=== PATIENT | female | born 1990 | race Caucasian/White ===

== ENCOUNTER 2019-12-18 11:45 | Observation (INO) | payer MEDICAID, SELFPAY ==
[2019-12-18 11:46] VITALS: BP 131/97; PULSE 95; RESP 16; TEMP 36.2; O2SAT 97; BMI 21.6
--- NOTE | 2019-12-18 12:06 | ED.VIS.GEN ---
History of Present Illness Chief Complaint: Substance Abuse Informant: Patient Narrative: Patient is a 29-year-old female with history of hepatitis C presenting with request for detox. Patient states she regularly uses heroin and methamphetamines and last use last night at 10 PM. Her and her boyfriend are both trying to get clean. Patient states she uses daily. He states she injects. She started to feel some withdrawal symptoms including antsiness and nausea. She states she intermittently uses Xanax and Klonopin but that only couple times a month. She denies any other complaints at this time. Past Medical History - Allergies and Home Meds Allergies/Adverse Reactions: Allergies No Known Allergies Allergy (Verified 12/18/19 12:20) Past Medical History: - - Hepatitis C, IV drug abuse Lives: Spouse/ Significant Other Smoking Status: Current every day smoker Alcohol: None Drugs: Heroin, - - Methamphetamine - Family History Maternal Family History: Reports: Hypertension Paternal Family History: Reports: Unknown Review of Systems General: Reports: Malaise. Denies: Chills, Fever, Sweats Eyes: Denies: Visual changes - bilaterally, Diplopia ENT: Denies: Rhinorrhea, Sore throat Cardiovascular: Denies: Chest pain, Palpitations Respiratory: Denies: Dyspnea, Cough, Dyspnea on exertion Gastrointestinal: Reports: Nausea. Denies: Abdominal pain, Vomiting, Diarrhea, Melena, Hematochezia Genitourinary: Denies: Dysuria, Hematuria, Frequency Musculoskeletal: Denies: Back pain, Extremity Pain Skin: Denies: Rash, Wounds Neurological: Denies: Headache, Weakness, Numbness Physical Exam Vital Signs/Narrative: Vital Signs Temp Pulse Resp BP Pulse Ox 12/18/19 11:46 97.1 F L 95 16 131/97 H 97 Inital Vital Signs reviewed: Yes General: Well nourished, Well developed, No Acute Distress Head: Normocephalic, Atraumatic Eyes: Perrl, EOMI ENT: Moist mucous membranes, No rhinorrhea Neck: Supple, Nontender Cardiovascular: Regular rate, Regular rhythm, No murmurs Respiratory: No distress, CTA bilaterally, Chest nontender Abdomen: Soft, Nontender, Nondistended, Normal bowel sounds Back: Nontender, Normal Inspection Extremities: Nontender, No edema Skin: Normal color, No rash, - - Multiple healing scabs on upper extremities consistent with skin picking, no significant cellulitic changes or abscess noted Neurological: Alert, Oriented x3, Cranial nerves II-XII grossly intact, Normal Strength, Normal Sensation Psychological: Normal affect, Normal Mood, Agitated Diagnostic/Tx/Re-eval - Medical Decision Making Laboratory Data 12/18/19 12/18/19 12/18/19 11:15 11:15 11:15 WBC RBC Hgb Hct MCV MCH MCHC RDW Std Deviation RDW Coeff of Tod Plt Count MPV Immature Gran % (Auto) Neut % (Auto) Lymph % (Auto) [place] % (Auto) Eos % (Auto) Baso % (Auto) Absolute Neuts (auto) Absolute Lymphs (auto) Nucleated RBC % Sodium 137 Potassium 3.6 Chloride 104 Carbon Dioxide 29.0 Anion Gap 4 L BUN 11 Creatinine 0.79 Estim Creat Clear Calc 92.85 Est GFR (MDRD) Af Amer 109 Est GFR (MDRD) Non-Af 90 BUN/Creatinine Ratio 13.9 Glucose 64 L Calcium 8.4 L Total Bilirubin 0.70 AST 22 ALT 28 Alkaline Phosphatase 99 Total Protein 7.9 Albumin 3.4 Globulin 4.5 H Albumin/Globulin Ratio 0.8 L Urine Color Urine Clarity Urine pH Ur Specific [place] Urine Protein Urine Glucose (UA) Urine Ketones Urine Occult Blood Urine Nitrite Urine Bilirubin Urine Urobilinogen Ur Leukocyte Esterase Urine RBC Urine WBC Ur Squamous Epith Cells Calcium Oxalate Crystal Urine Bacteria Urine Mucus Urine Test Urine Opiates Screen NEGATIVE Urine Methadone Screen NEGATIVE Ur Barbiturates Screen NEGATIVE Ur Phencyclidine Scrn NEGATIVE Ur Amphetamines Screen POSITIVE H U Methamphetamin-MDMA POSITIVE H U Benzodiazepines Scrn NEGATIVE Urine Cocaine Screen NEGATIVE U Cannabinoids Screen NEGATIVE Ur Drug Screen Comment Ethyl Alcohol 4.0 12/18/19 12/18/19 11:15 11:15 WBC 8.3 RBC 4.71 Hgb 14.0 Hct 42.2 MCV 89.6 MCH 29.7 MCHC 33.2 RDW Std Deviation 43.8 RDW Coeff of Tod 13.4 Plt Count 313 MPV 8.6 Immature Gran % (Auto) 0.200 Neut % (Auto) 68.9 Lymph % (Auto) 19.8 [place] % (Auto) 6.9 Eos % (Auto) 3.5 Baso % (Auto) 0.7 Absolute Neuts (auto) 5.7 Absolute Lymphs (auto) 1.64 Nucleated RBC % 0 Sodium Potassium Chloride Carbon Dioxide Anion Gap BUN Creatinine Estim Creat Clear Calc Est GFR (MDRD) Af Amer Est GFR (MDRD) Non-Af BUN/Creatinine Ratio Glucose Calcium Total Bilirubin AST ALT Alkaline Phosphatase Total Protein Albumin Globulin Albumin/Globulin Ratio Urine Color Yellow Urine Clarity Sl. Cloudy Urine pH 5.0 Ur Specific [place] 1.025 Urine Protein Negative Urine Glucose (UA) Normal Urine Ketones 5 H Urine Occult Blood 50 H Urine Nitrite Negative Urine Bilirubin Negative Urine Urobilinogen 1 H Ur Leukocyte Esterase 100 H Urine RBC 0-5 SEEN Urine WBC 10-25 SEEN Ur Squamous Epith Cells 0-5 SEEN Calcium Oxalate Crystal 1+ Urine Bacteria 2+ Urine Mucus 0 SEEN Urine Test Negative Urine Opiates Screen Urine Methadone Screen Ur Barbiturates Screen Ur Phencyclidine Scrn Ur Amphetamines Screen U Methamphetamin-MDMA U Benzodiazepines Scrn Urine Cocaine Screen U Cannabinoids Screen Ur Drug Screen Comment Ethyl Alcohol Patient is evaluated for request of heroin and methamphetamine detox. Patient appears mildly anxious and physical exam is otherwise benign. Patient has any urinary symptoms however urinalysis does show some white blood cells and 2+ bacteria. Urine culture sent. Patient is admitted to inpatient detox. She is agreeable this plan. She is hemodynamically stable at time of disposition. ED Disposition - Plan for ED Patient: Disposition: Acute Care Hospital [facility] Diagnosis: Heroin withdrawal, IV drug abuse
[2019-12-18] MEDS: LORazepam 2 MG/ML Syringe 0.5 MG IV (12:20)
[2019-12-18] MEDS: Ondansetron 4 MG/2 ML Vial IV (12:20)
[2019-12-18 12:25] LABS: Mucous, Urine 0 SEEN /hpf (<or=2+)
[2019-12-18 12:29] LABS: Color, Urine Yellow (Yellow); Glucose, Dipstick Normal (Normal); Ketone-Dipstick 5 mg/dl (Negative); Leukocyte Esterase-Dipstick 100 /ul (Negative); Nitrite-Dipstick Negative (Negative); Occult Blood-Urine 50 /ul (Negative); Protein-Dipstick Negative (Negative); Specific Gravity, Urine 1.025 (1.002-1.030); Urine Bilirubin Dipstick Negative (Negative); Urine Clarity Sl. Cloudy (Clear); Urine Urobilinogen 1 mg/dl (Normal)
[2019-12-18 12:35] LABS: Absolute Lymphocyte Count 1.64 X10^3/uL (0.83-4.51); Absolute Neutrophil Count 5.7 X10^3/uL (2.0-7.7); Bacteria 2+ /hpf (None Seen); Basophil# 0.06 X10^3/uL; Basophil% 0.7 % (0-1); Eosinophil# 0.29 X10^3/uL; Eosinophils% 3.5 % (0-5); Hematocrit 42.2 % (37-47); Lymphocyte # 1.64 X10^3/ul (4.0); Lymphocyte % 19.8 % (19-41); Mean Corp Hgb Conc 33.2 g/dL (32-36); Mean Corpuscular Hgb 29.7 pg (27.0-32.0); Mean Corpuscular Volume 89.6 fL (81-99); Mean Platelet Vol. 8.6 fl (6.2-12.0); Monocyte# 0.57 X10^3/uL; Monocyte% 6.9 % (0-10); NRBC Flagged by Analyzer 0 % (0-5); Neutrophil % 68.9 % (47-70); Platelet Count 313 K/mm3 (150-450); RBC Distribution Width CV 13.4 % (11.6-14.6); RBC Distribution Width SD 43.8 fl (35.1-43.9); Red Blood Cells-Urine 0-5 SEEN /hpf (0-5); Red Blood Count 4.71 M/mm3 (4.2-5.4); Squamous Epithelial Cells - UA 0-5 SEEN /hpf (5-10); White Blood Cells 10-25 SEEN /hpf (0-5); White Blood Count 8.3 K/mm3 (4.4-11.0)
[2019-12-18 12:36] LABS: Calcium Oxalate Crystals Ur 1+ /hpf (<or=2+)
[2019-12-18 12:37] LABS: Internal QC Validated? YES +Cl - CLEAR BKGD; Pregnancy, Urine Negative Negative
[2019-12-18 12:51] LABS: ALB/GLOB Ratio 0.8 RATIO (0.9-2.4); AST(SGOT) 22 U/L (15-37); Alanine Aminotransfer ALT/SGPT 28 U/L (13-56); Albumin, Serum 3.4 g/dL (3.2-5.0); Alkaline Phosphatase 99 U/L (45-117); Anion Gap 4 (5-15); BUN 11 mg/dL (7-18); BUN/Creat Ratio 13.9 RATIO (10-20); Calcium,Total 8.4 mg/dL (8.5-10.1); Chloride 104 mmol/L (98-107); Creatinine, Serum 0.79 mg/dL (0.55-1.02); EST Glomerular Filtration Rate 90 mL/min (>60); Est Glom Filt Rate - Afr Amer 109 mL/min (>60); Estimated Creatinine Clearance 92.85 ml/min; Globulin 4.5 g/dL (2.2-4.2); Glucose 64 mg/dL (74-106); Potassium 3.6 mmol/L (3.5-5.1); Protein, Total 7.9 g/dL (6.4-8.2); Sodium Level 137 mmol/L (136-145)
[2019-12-18 13:06] LABS: Amphetamine Urine VISTA POSITIVE (<1000 ng/mL); Barbiturate Urine VISTA NEGATIVE (< 200 ng/mL); Benzodiazepine Urine VISTA NEGATIVE (< 200 ng/mL); Cocaine Urine VISTA NEGATIVE (< 300 ng/mL); Ecstacy Urine VISTA POSITIVE (< 500 ng/mL); Methadone Urine VISTA NEGATIVE (< 300 ng/mL); PCP Urine VISTA NEGATIVE (< 25 ng/mL); THC Urine VISTA NEGATIVE (< 50 ng/mL); Vista UDS pH Range 5
--- NOTE | 2019-12-18 13:20 | CM.ED ---
SOCIAL WORK Informant: Dr. Ackerman Reason for Consult: Substance Abuse Met with patient in room. Introduced role and reason for referral. Patient reports is from [facility] and had been unable to find detox. Patient reports plan to attend IOP at [facility]. Patient would also like information on residential treatment and reports is currently homeless. Patient admits to history of depression and anxiety and states depression worsened in March when her father . Patient reports after his began using almost everyday. Patient reports uses heroin and meth and states last use was last evening. Patient states [facility] worker, Swapna Patel is aware she was coming in for treatment. Patient states her mother has temporary custody of her 3 children. Education provided on [facility] program and updated patient will be assessed by metal casting trades worker from [facility]. Call to [facility], spoke with Dorinda to update on patient's admission to [facility]. Dorinda to be in to complete assessment. Ayan Gonzalez, CHEMICAL PROCESSING SUPERVISOR, HELPER TEACHER
[2019-12-18 13:21] VITALS: BP 128/74; PULSE 87; RESP 16; TEMP 36.6; O2SAT 98
--- NOTE | 2019-12-18 13:29 | PCM.HP.STD ---
Problem List (1) Heroin withdrawal Status: Acute History of Present Illness Date of Admission: 12/18/19 Chief Complaint: requesting heroin withdrawal treatment The patient is a 29 year old F who injects heroin whose last use was last evening is requesting treatment for withdrawal. Patient since then has been having restless legs, abdominal cramps and a feeling very anxious. Patient presented to the emergency room from [facility] as she was not able to be admitted at a facility for acute withdrawal symptoms down there. Plan is for her to enroll in a outpatient program this coming Monday down in [place]. [] Past Medical History Medical History: Medical History (Last Updated 12/18/19 @ 13:[address] Adam Coffey, DO) Anxiety F41.9 Hepatitis C B19.20 Allergies No Known Allergies Allergy (Verified 12/18/19 12:20) Home Medications: Ambulatory Orders Medication Instructions Recorded Mirtazapine [Remeron] 15 mg PO QHS 12/18/19 Venlafaxine HCl [Effexor Xr] 75 mg PO DAILY 12/18/19 Lives: Spouse/ Significant Other Smoking Status: Heavy Smoker (>10/day) Tobacco Use: Cigarettes Alcohol: None Drugs: Heroin, - - Methamphetamine - *Family History Maternal History Items: Hypertension Paternal History Items: Unknown Review of Systems Constitutional: Reports: Anorexia, Chills Eyes: Denies: Blurred vision, Double vision HEENT: Denies: Head Aches, Sinus Congestion, Sinus Drainage Cardiovascular: Denies: Chest Pain, Palpitations Respiratory: Denies: Cough, Shortness of breath at rest, Sputum production Gastrointestinal: Reports: Abdominal Pain, Nausea. Denies: Vomiting Skin: Reports: - - multiple self-induced wounds on arms, face and legs. resolving erythema over right arm from a failed infection. Psychiatric: Reports: Anxiety Comment: All review of systems were negative except as mentioned above in the history of present illness and the other review of systems. VTE Information - Inpt Only VTE Present on Admission: No VTE Mechan Device Prophylaxis: None VTE Pharm Prophylaxis ordered?: No Reason prophylaxis not ordered:: Treatment Not Indicated Patient Problems: Active and Suspected Problems Heroin withdrawal (Acute) - Physical Exam Vitals/I&O's: Vital Signs Temp Pulse Resp BP Pulse Ox 36.6 C 87 16 128/74 H 98 12/18/19 13:21 12/18/19 13:21 12/18/19 13:21 12/18/19 13:21 12/18/19 13:21 Oxygen Delivery Method Room Air Weight: 58.967 kg Body Mass Index (BMI) 21.6 General: Alert, Cooperative HEENT: Atraumatic, Normocephalic Neck: No Nodes, Thyroid Normal Size and Texture Lungs: Clear to auscultation, Normal air movement, No rhonchi, No wheeze, No rales Cardiovascular: Regular rate, Regular Rhythm, Normal S1, Normal S2, No murmurs Abdomen: Bowel Sounds Present, Soft, Non Tender, Non-Distended Extremities: No edema, No Calf Tenderness Skin: - - multiple scabbed lesions over face, arms and legs. erythematous lesion over right forarm. Musculoskeletal: No Muscle Wasting Psych/Mental Status: Agitated, Anxious Laboratory Results 12/18/19 11:15: Sodium 137, Potassium 3.6, Chloride 104, Carbon Dioxide 29.0, Anion Gap 4 L, BUN 11, Creatinine 0.79, Estim Creat Clear Calc 92.85, Est GFR (MDRD) Af Amer 109, Est GFR (MDRD) Non-Af 90, BUN/Creatinine Ratio 13.9, Glucose 64 L, Calcium 8.4 L, Total Bilirubin 0.70, AST 22, ALT 28, Alkaline Phosphatase 99, Total Protein 7.9, Albumin 3.4, Globulin 4.5 H, Albumin/Globulin Ratio 0.8 L 12/18/19 11:15: Ethyl Alcohol 4.0 12/18/19 11:15: Urine Opiates Screen NEGATIVE, Urine Methadone Screen NEGATIVE, Ur Barbiturates Screen NEGATIVE, Ur Phencyclidine Scrn NEGATIVE, Ur Amphetamines Screen POSITIVE H, U Methamphetamin-MDMA POSITIVE H, U Benzodiazepines Scrn NEGATIVE, Urine Cocaine Screen NEGATIVE, U Cannabinoids Screen NEGATIVE, Ur Drug Screen Comment 12/18/19 11:15: WBC 8.3, RBC 4.71, Hgb 14.0, Hct 42.2, MCV 89.6, MCH 29.7, MCHC 33.2, RDW Std Deviation 43.8, RDW Coeff of Tod 13.4, Plt Count 313, MPV 8.6, Immature Gran % (Auto) 0.200, Neut % (Auto) 68.9, Lymph % (Auto) 19.8, [place] % (Auto) 6.9, Eos % (Auto) 3.5, Baso % (Auto) 0.7, Absolute Neuts (auto) 5.7, Absolute Lymphs (auto) 1.64, Nucleated RBC % 0 12/18/19 11:15: Urine Color Yellow, Urine Clarity Sl. Cloudy, Urine pH 5.0, Ur Specific [place] 1.025, Urine Protein Negative, Urine Glucose (UA) Normal, Urine Ketones 5 H, Urine Occult Blood 50 H, Urine Nitrite Negative, Urine Bilirubin Negative, Urine Urobilinogen 1 H, Ur Leukocyte Esterase 100 H, Urine RBC 0-5 SEEN, Urine WBC 10-25 SEEN, Ur Squamous Epith Cells 0-5 SEEN, Calcium Oxalate Crystal 1+, Urine Bacteria 2+, Urine Mucus 0 SEEN, Urine Test Negative Assessment/Plan All Active Problems Heroin withdrawal (Acute) 1. acute heroin withdrawal: Patient will be started on the buprenorphine taper. Explained to the patient that they will take place over 3 days and her last dose will be on the . Patient last will have other medications to help with other somatic complaints associated with her withdrawal. Patient is to enroll in a program this coming Monday down in [place], [place]. Told the patient I am not sure if she would be able to stay here until then but it may be in her best interest for her to stay until then so as to prevent the relapse. Patient is here with her fianc? who is also seeking treatment for heroin withdrawal. I did tell the patient that this is a voluntary program and that we do encourage her to stay through the duration but if she were to insist on leaving AGAINST MEDICAL ADVICE that we would do what we could to encourage her to stay but we would not prevent her from leaving if that is what she so desired. 2. Hepatitis C: Secondary to heroin. Recommend outpatient follow-up. 3. VTE prophylaxis low risk and not indicated. Inpatient E&M: 43042 Init Hosp L2
[2019-12-18 14:44] VITALS: BMI 22.3
[2019-12-18 14:52] VITALS: BP 108/64; PULSE 87; RESP 16; TEMP 36.9; O2SAT 97
[2019-12-18] MEDS: Dicyclomine 10 MG Capsule 20 MG PO ×2 (16:27→23:08)
[2019-12-18] MEDS: Methocarbamol 750 MG Tablet 1500 MG PO ×2 (16:27→23:08)
[2019-12-18] MEDS: hydrOXYzine PAM 25 MG Capsule 50 MG PO (16:27)
[2019-12-18] MEDS: Gabapentin 300 MG Capsule PO (16:28)
[2019-12-18] MEDS: Buprenorphine HCl 2 MG TAB.SUBL 4 MG SL ×2 (16:28→22:59)
[2019-12-18 22:51] VITALS: BP 112/78; PULSE 101; RESP 18; TEMP 36.8; O2SAT 95
[2019-12-18] MEDS: Ibuprofen 600 MG Tablet PO (23:08)
[2019-12-18] MEDS: Mirtazapine 15 MG Tablet PO (23:08)
[2019-12-19 03:05] VITALS: BP 117/84; PULSE 94; RESP 18; TEMP 36.9; O2SAT 95
[2019-12-19 05:56] VITALS: BP 116/80; PULSE 92; RESP 17; TEMP 36.8; O2SAT 96
[2019-12-19] MEDS: Buprenorphine HCl 2 MG TAB.SUBL 4 MG SL ×3 (07:46→20:06)
[2019-12-19] MEDS: Ibuprofen 600 MG Tablet PO ×2 (07:52→15:22)
[2019-12-19] MEDS: Gabapentin 300 MG Capsule PO ×3 (07:52→23:28)
[2019-12-19] MEDS: Ondansetron ODT 4 MG Tablet 8 MG PO ×2 (07:52→17:19)
[2019-12-19] MEDS: Venlafaxine XR 75 MG Capsule PO (07:53)
[2019-12-19 08:00] VITALS: BP 136/75; PULSE 89; RESP 16; TEMP 37; O2SAT 100
[2019-12-19] MEDS: cloNIDine HCl 0.1 MG Tablet PO ×2 (09:38→17:19)
[2019-12-19] MEDS: Methocarbamol 750 MG Tablet 1500 MG PO ×3 (11:25→23:28)
[2019-12-19] MEDS: hydrOXYzine PAM 25 MG Capsule 50 MG PO ×2 (11:25→21:34)
[2019-12-19 11:48] VITALS: BP 108/74; PULSE 92; RESP 16; TEMP 36.8; O2SAT 100
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
--- NOTE | 2019-12-19 14:50 | ADDICTION ---
This headline writer met with patient to assess ASAM criteria and to begin discharge planning. Patient was alert/oriented x4 and presented with agitated mood and congruent affect. She participated appropriately throughout this episode of care. She reports that her drug of choice is heroin but that she also uses meth daily. Patient appears appropriate for 4.0 Medically Managed Intensive Inpatient services due to length of use, frequency and amount of use as well has severe withdrawal symptoms. She reports the following sx: nausea, vomiting, agitation, restless leg, muscle aches, headache and general discomfort. This headline writer completed ASAM Assessment, AUDIT and MSE. Patient signed JEREMY for [employer] and [facility] and is scheduled for an appointment with her primary counselor on 02/23/2020 at 11am. She rejected residential recommendation. Patient was provided information related to addiction, withdrawal, triggers, sober supports and other beneficial information. She was provided information for AoD and MH providers in her preferred area. She has agreed to complete written discharge plan to be reviewed by this headline writer at next visit. This headline writer will fax MSE, ASAM assessment, AUDIT, JEREMY and discharge plan upon patient's completion of program. This headline writer will visit with patient on 12/20/2019 to continue discharge planning processes.
[2019-12-19] MEDS: Cephalexin 500 MG Capsule PO ×2 (15:22→21:27)
[2019-12-19 15:25] VITALS: BP 122/84; PULSE 89; RESP 16; TEMP 36.8; O2SAT 100
[2019-12-19 16:21] LABS: HIV - WCH Non-Reactive (Nonreactive)
[2019-12-19 20:50] VITALS: BP 105/68; PULSE 83; RESP 14; TEMP 36.7; O2SAT 100
[2019-12-19] MEDS: Mirtazapine 15 MG Tablet PO (21:27)
[2019-12-20 03:00] VITALS: BP 101/70; PULSE 74; RESP 16; TEMP 36.8; O2SAT 97
[2019-12-20] MEDS: Buprenorphine HCl 2 MG TAB.SUBL 4 MG SL ×3 (03:33→20:46)
[2019-12-20] MEDS: Methocarbamol 750 MG Tablet 1500 MG PO ×3 (05:52→18:11)
[2019-12-20] MEDS: hydrOXYzine PAM 25 MG Capsule 50 MG PO ×2 (05:53→14:44)
[2019-12-20] MEDS: Ibuprofen 600 MG Tablet PO ×2 (07:25→21:02)
[2019-12-20 09:10] VITALS: BP 117/77; PULSE 78; RESP 18; TEMP 37.1; O2SAT 97
[2019-12-20] MEDS: Venlafaxine XR 75 MG Capsule PO (09:12)
[2019-12-20] MEDS: Cephalexin 500 MG Capsule PO ×2 (09:12→21:02)
[2019-12-20] MEDS: Gabapentin 300 MG Capsule PO ×2 (09:12→18:11)
[2019-12-20] MEDS: Acetaminophen 500 MG Tablet PO ×2 (09:13→13:14)
--- NOTE | 2019-12-20 12:55 | ADDICTION ---
This advertising writer met with patient, in her room, to discuss discharge planning. Patient was up, alert and oriented and presented with euthymic affect. She reported that she feels much better than yesterday and shared that peer support ([facility]) came and visited. She also reported that she scheduled an appointment to see Dr. Quiroz for MAT on December 23 at 9am. She reported that she is feeling much more motivated to engage in ongoing treatment and plans to initiate attendance in IOP at [facility]. She reported that she plans to work with the housing department to obtain housing as well. JHONATAN, ROCHELLE, MARTINE and JEREMY faxed to [facility] on 12/20/2019.
[2019-12-20] MEDS: Ondansetron ODT 4 MG Tablet 8 MG PO (13:10)
--- NOTE | 2019-12-20 13:22 | PCM.PN.HOSP ---
<Saeed Lopez - Last Filed: 12/20/19 13:22> Patient Problems: Active and Suspected Problems Heroin withdrawal (Acute) IV drug abuse (Acute) Reason for Visit: Heroin withdrawal Subjective: Patient resting comfortably in bed, sleepy but easily awoken. Patient states that overall her symptoms are markedly improved since yesterday. She does continue to have some back pain, generalized muscle aches, restless legs. Anxiety is improved. No nausea, vomiting, diarrhea. Patient is tolerating p.o. intake. Patient has no cellulitic changes around her injection [place] on her hand and distal arms. Patient is reluctant to stay 2 more days as she was admitted as the same time as her fianc? who is likely to be discharged tomorrow. She stated that their plan was to go through this protocol together and she wants to be discharged the same time he has. Vitals/I&O's: Vital Signs Temp Pulse Resp BP Pulse Ox 98.7 F 78 18 117/77 97 12/20/19 09:10 12/20/19 09:10 12/20/19 09:10 12/20/19 09:10 12/20/19 09:10 Oxygen Delivery Method Room Air Weight: 133 lb 15.987 oz Body Mass Index (BMI) 22.3 Intake and Output for Last 24 Hours 12/18/19 12/19/19 12/20/19 23:59 23:59 23:59 Intake Total 1210 / 1510 1200 / 1200 Balance 1210 / 1510 1200 / 1200 General: Alert, Oriented x3, Cooperative HEENT: Atraumatic, PERRLA, EOMI, Normocephalic Neck: Supple, No JVD, Negative Carotid Bruits Lungs: Clear to auscultation, Normal air movement Cardiovascular: Regular rate, No murmurs Abdomen: Bowel Sounds Present, Soft, Non Tender Extremities: No edema, Capillary Refill Less than 3 Seconds Skin: No rashes, No breakdown Musculoskeletal: No Tenderness to Palpation of Joints or Extremities Neurological: Cranial nerves II-XII grossly intact Psych/Mental Status: Normal Affect, Appropriate, Alert and oriented to time, place, person, mood and affect Microbiology Past 72 Hours 12/18/19 11:10 Urine, Clean Catch Urine Culture - Final Presumptive E. coli Laboratory Results 12/18/19 11:15: HIV 1&2 Antibody Non-Reactive Current Medications Acetaminophen (Tylenol) 500 mg PO Q4H PRN PRN PRN Reason: Temp > 100.4 F Last Admin: 12/20/19 13:14 Dose: 500 mg Documented by: Al Hydroxide/Mg Hydroxide (Mylanta Ii) 30 ml PO Q6H PRN PRN PRN Reason: dyspesia Buprenorphine HCl (Buprenorphine Hcl) 4 mg SL Q8H JYOTHI; Taper Stop: 12/22/19 11:59 Last Admin: 12/20/19 12:01 Dose: 4 mg Documented by: Cephalexin (Keflex) 500 mg PO Q12 JYOTHI Last Admin: 12/20/19 09:12 Dose: 500 mg Documented by: Clonidine (Catapres) 0.1 mg PO Q8H PRN PRN PRN Reason: RESTLESSNESS Last Admin: 12/19/19 17:19 Dose: 0.1 mg Documented by: Dicyclomine HCl (Bentyl) 20 mg PO Q6H PRN PRN PRN Reason: Abdominal Discomfort Last Admin: 12/18/19 23:08 Dose: 20 mg Documented by: Gabapentin (Neurontin) 300 mg PO Q8H PRN PRN PRN Reason: moderate to severe anxiety Last Admin: 12/20/19 09:12 Dose: 300 mg Documented by: Hydroxyzine Pamoate (Vistaril Pamoate Capsule) 50 mg PO Q6H PRN PRN PRN Reason: mild anxiety Last Admin: 12/20/19 05:53 Dose: 50 mg Documented by: Ibuprofen (Motrin) 600 mg PO Q8H PRN PRN PRN Reason: Pain Score 1-10/10 Last Admin: 12/20/19 07:25 Dose: 600 mg Documented by: Loperamide HCl (Imodium) 2 mg PO Q4H PRN PRN PRN Reason: LOOSE STOOLS Methocarbamol (Methocarbamol) 1,500 mg PO Q6H PRN PRN PRN Reason: MUSCLE SPASM Last Admin: 12/20/19 12:01 Dose: 1,500 mg Documented by: Mirtazapine (Remeron) 15 mg PO QHS [facility] Last Admin: 12/19/19 21:27 Dose: 15 mg Documented by: Nicotine (Nicoderm Cq (Pbkc)) 21 mg TRANSDERM. DAILY [facility] Last Admin: 12/20/19 09:12 Dose: 21 mg Documented by: Ondansetron HCl (Zofran Odt) 8 mg PO Q8H PRN PRN PRN Reason: NAUSEA Last Admin: 12/20/19 13:10 Dose: 8 mg Documented by: Trazodone HCl (Desyrel) 100 mg PO QHS PRN PRN PRN Reason: INSOMNIA Venlafaxine HCl (Effexor Xr) 75 mg PO DAILY JYOTHI Last Admin: 12/20/19 09:12 Dose: 75 mg Documented by: Medical Necessity - Tobacco Use Smoking Status: Heavy Smoker (>10/day) Tobacco Use: Cigarettes Assessment/Plan All Active Problems Heroin withdrawal (Acute) IV drug abuse (Acute) 1. Acute opiate withdrawal - also meth. Patient doing well with new higher dose taper of buprenorphine. 2. Hx Hep C - o/p follow up 3. Anxiety - effexor, remeron. DVT ppx: early ambulation DC plannin program at follow up This patient was seen by Saeed Lopez PA-C under the supervision of Doctor Rafael <Kimberli Hall - Last Filed: 12/20/19 15:40> Subjective: Feeling much better today. Sx are mild now. Anxious to go home and would like to go tomorrow if able. Has f/u at 180 on Monday. Vitals/I&O's: Vital Signs Temp Pulse Resp BP Pulse Ox 98.4 F 79 16 120/86 H 97 12/20/19 14:41 12/20/19 14:41 12/20/19 14:41 12/20/19 14:41 12/20/19 14:41 Oxygen Delivery Method Room Air Weight: 60.781 kg Body Mass Index (BMI) 22.3 Intake and Output for Last 24 Hours 12/18/19 12/19/19 12/20/19 23:59 23:59 23:59 Intake Total 1210 / 1510 1200 / 1200 Balance 1210 / 1510 1200 / 1200 General: Alert, Oriented x3, Cooperative Lungs: Clear to auscultation, Normal air movement, No rhonchi, No wheeze, No rales Cardiovascular: Regular rate, Regular Rhythm, Normal S1, Normal S2, No murmurs, No Ectopic Activity, No rub noted, No Gallop Abdomen: Bowel Sounds Present, Soft, Non Tender, Non-Distended Extremities: No clubbing, No cyanosis, No edema, Capillary Refill Less than 3 Seconds Psych/Mental Status: Normal Affect, Appropriate, Alert and oriented to time, place, person, mood and affect Microbiology Past 72 Hours 12/18/19 11:10 Urine, Clean Catch Urine Culture - Final Presumptive E. coli Laboratory Results 12/18/19 11:15: HIV 1&2 Antibody Non-Reactive Current Medications Acetaminophen (Tylenol) 500 mg PO Q4H PRN PRN PRN Reason: Temp > 100.4 F Last Admin: 12/20/19 13:14 Dose: 500 mg Documented by: Al Hydroxide/Mg Hydroxide (Mylanta Ii) 30 ml PO Q6H PRN PRN PRN Reason: dyspesia Buprenorphine HCl (Buprenorphine Hcl) 4 mg SL Q8H JYOTHI; Taper Stop: 12/22/19 11:59 Last Admin: 12/20/19 12:01 Dose: 4 mg Documented by: Cephalexin (Keflex) 500 mg PO Q12 JYOTHI Last Admin: 12/20/19 09:12 Dose: 500 mg Documented by: Clonidine (Catapres) 0.1 mg PO Q8H PRN PRN PRN Reason: RESTLESSNESS Last Admin: 12/19/19 17:19 Dose: 0.1 mg Documented by: Dicyclomine HCl (Bentyl) 20 mg PO Q6H PRN PRN PRN Reason: Abdominal Discomfort Last Admin: 12/18/19 23:08 Dose: 20 mg Documented by: Gabapentin (Neurontin) 300 mg PO Q8H PRN PRN PRN Reason: moderate to severe anxiety Last Admin: 12/20/19 09:12 Dose: 300 mg Documented by: Hydroxyzine Pamoate (Vistaril Pamoate Capsule) 50 mg PO Q6H PRN PRN PRN Reason: mild anxiety Last Admin: 12/20/19 14:44 Dose: 50 mg Documented by: Ibuprofen (Motrin) 600 mg PO Q8H PRN PRN PRN Reason: Pain Score 1-10/10 Last Admin: 12/20/19 07:25 Dose: 600 mg Documented by: Loperamide HCl (Imodium) 2 mg PO Q4H PRN PRN PRN Reason: LOOSE STOOLS Methocarbamol (Methocarbamol) 1,500 mg PO Q6H PRN PRN PRN Reason: MUSCLE SPASM Last Admin: 12/20/19 12:01 Dose: 1,500 mg Documented by: Mirtazapine (Remeron) 15 mg PO QHS [facility] Last Admin: 12/19/19 21:27 Dose: 15 mg Documented by: Nicotine (Nicoderm Cq (Pbkc)) 21 mg TRANSDERM. DAILY [facility] Last Admin: 12/20/19 09:12 Dose: 21 mg Documented by: Ondansetron HCl (Zofran Odt) 8 mg PO Q8H PRN PRN PRN Reason: NAUSEA Last Admin: 12/20/19 13:10 Dose: 8 mg Documented by: Trazodone HCl (Desyrel) 100 mg PO QHS PRN PRN PRN Reason: INSOMNIA Venlafaxine HCl (Effexor Xr) 75 mg PO DAILY [facility] Last Admin: 12/20/19 09:12 Dose: 75 mg Documented by: STROKE Vital Signs/Narrative: Vital Signs Temp Pulse Resp BP Pulse Ox 12/20/19 14:41 98.4 F 79 16 120/86 H 97 Assessment/Plan ASSESSMENT Acute Opiate Withdrawal--> baseline use is 2-3 gms per day H/O Hep C--> unclear if cleared or chronic infection -transaminases are WNL Polysubstance abuse-->tox + for meth H/O Anxiety Tobacco Abuse PLAN -much better today -down to Suboxone 4 mg TID -continue supportive meds -HIV non-reactive -continue home meds -continue Nicotine patch -F/U with Dr. Quiroz at 180 on Monday at 9 am -if stable will d/c after last dose of Suboxone tomorrow and write for 2 days worth at d/c Inpatient E&M: 86688 Subs Hosp L2
[2019-12-20 14:41] VITALS: BP 120/86; PULSE 79; RESP 16; TEMP 36.9; O2SAT 97
[2019-12-20] MEDS: cloNIDine HCl 0.1 MG Tablet PO (18:11)
[2019-12-20] MEDS: Dicyclomine 10 MG Capsule 20 MG PO (18:11)
[2019-12-20 20:40] VITALS: BP 120/67; PULSE 78; RESP 16; TEMP 37; O2SAT 99
[2019-12-20] MEDS: Mirtazapine 15 MG Tablet PO (21:02)
[2019-12-21 02:29] VITALS: BP 131/89; PULSE 71; RESP 20; TEMP 36.9; O2SAT 98
[2019-12-21] MEDS: hydrOXYzine PAM 25 MG Capsule 50 MG PO (02:41)
[2019-12-21] MEDS: Methocarbamol 750 MG Tablet 1500 MG PO ×2 (02:41→08:45)
[2019-12-21] MEDS: Dicyclomine 10 MG Capsule 20 MG PO ×2 (02:41→08:46)
[2019-12-21] MEDS: cloNIDine HCl 0.1 MG Tablet PO (02:41)
[2019-12-21] MEDS: Buprenorphine HCl 2 MG TAB.SUBL 4 MG SL (04:00)
[2019-12-21 08:31] VITALS: BP 110/77; PULSE 71; RESP 16; TEMP 36.8; O2SAT 100
[2019-12-21] MEDS: Venlafaxine XR 75 MG Capsule PO (08:45)
[2019-12-21] MEDS: Ondansetron ODT 4 MG Tablet 8 MG PO (08:46)
[2019-12-21] MEDS: Cephalexin 500 MG Capsule PO (08:46)
[2019-12-21] MEDS: Ibuprofen 600 MG Tablet PO (08:46)
--- NOTE | 2019-12-21 09:11 | PCM.DC ---
- Discharge Diagnoses Current Active Problems: Current Active and Chronic Problems Heroin withdrawal (Acute) IV drug abuse (Acute) You will use the following diet at home:: No restrictions Your food should be the consistency of: Regular Your liquids should be the consistency of: Regular/Thin Discharge Activity: Return to Normal Activity Allergies/Adverse Reactions: Allergies No Known Allergies Allergy (Verified 12/18/19 12:20) Medications to take at Discharge Mirtazapine [Remeron] 15 mg PO QHS 12/18/19 Venlafaxine HCl [Effexor Xr] 75 mg PO DAILY 12/18/19 Nitrofurantoin Macrocrystal [Nitrofurantoin] 100 mg PO BID #10 cap 12/21/19 The following prescriptions were given: Nitrofurantoin Macrocrystal [Nitrofurantoin] 100 mg PO BID #10 cap Transmission Status: Sent to [facility] Primary Care Physician: NOT,DEFINED [NON-STAFF] - Please follow up with your Primary Care Physician in: 1-2 weeks Test Results: Test results from this visit will be discussed in further detail at your follow-up appointment, if applicable. Please Follow Up With: Karen Quiroz DO When: Monday Proposed Discharge Date: 12/21/19
--- NOTE | 2019-12-21 14:46 | DS.PCM_ITS ---
<Saeed Lopez - Last Filed: 12/21/19 14:46> Discharge Date and Diagnosis Date of Admission: 12/18/19 Date of Discharge: 12/21/19 - Primary Discharge Diagnosis Acute Problems: Heroin withdrawal Meth abuse UTI 2/2 E coli (Resistance to amp, unasyn, cefazolin zosyn) Anxiety Hx Hep C Hospital Course and Treatment Operations: None Procedures: None Summary of Care Provided: Hospital course: The patient is a 29 year old F with past medical history of heroin, meth, nicotine abuse, anxiety, who presented the emergency room with request for heroin detox. Patient stated she had last used the night prior and also was using regularly 2 to 3 g of heroin daily. She tested positive for meth on her tox screen however did test negative for opiates. Regardless she was admitted to medical surgical floor for opiate withdrawal. She was placed on Keflex for UTI. The patient had very poorly controlled symptoms the first night, and her Subutex taper had to be increased to a higher dose taper. She did well at the higher dose. She actually made it through the program until the day of planned discharge however she became very anxious when waiting to be discharged and left the hospital AGAINST MEDICAL ADVICE before receiving the last dose of her Subutex taper that was due early that afternoon. The patient had urine cultures demonstrating E. coli that was resistant to Keflex, susceptible to nitrofurantoin, she was placed on a 5-day course of Macrobid. The patient was supposed to go home with 3 days of Subutex to get her through to her appointment with Dr. santa and the [facility] program on Monday. She did not receive this prescription as she did not complete her taper here and left AGAINST MEDICAL ADVICE. This patient was seen by Saeed Lopez PA-C under the supervision of Doctor Rafael. [] - Physical Exam Vitals/I&O's: Vital Signs Temp Pulse Resp BP Pulse Ox 98.2 F 71 16 110/77 100 12/21/19 08:31 12/21/19 08:31 12/21/19 08:31 12/21/19 08:31 12/21/19 08:31 Oxygen Delivery Method Room Air Weight: 133 lb 15.987 oz Body Mass Index (BMI) 22.3 Intake and Output for Last 24 Hours 12/19/19 12/20/19 12/21/19 23:59 23:59 23:59 Intake Total 1210 / 1510 1200 / 1400 400 / 400 Balance 1210 / 1510 1200 / 1400 400 / 400 General: Alert, Oriented x3, Cooperative HEENT: Atraumatic, PERRLA, EOMI, Normocephalic Neck: Supple, No JVD, Negative Carotid Bruits Lungs: Clear to auscultation, Normal air movement Cardiovascular: Regular rate, No murmurs Abdomen: Bowel Sounds Present, Soft, Non Tender Extremities: No edema, Capillary Refill Less than 3 Seconds Skin: No rashes, No breakdown Musculoskeletal: No Tenderness to Palpation of Joints or Extremities Neurological: Cranial nerves II-XII grossly intact Psych/Mental Status: Normal Affect, Appropriate, Alert and oriented to time, place, person, mood and affect Microbiology Past 72 Hours 12/18/19 11:10 Urine, Clean Catch Urine Culture - Final Presumptive E. coli Discharge Diet: No Restrictions Discharge Activity: Return to Normal Activity Home Medications: Medications to take at Discharge Mirtazapine [Remeron] 15 mg PO QHS 12/18/19 Venlafaxine HCl [Effexor Xr] 75 mg PO DAILY 12/18/19 Nitrofurantoin Macrocrystal [Nitrofurantoin] 100 mg PO BID #10 cap 12/21/19 Following Prescrptions Were Given to Patient: Nitrofurantoin Macrocrystal [Nitrofurantoin] 100 mg PO BID #10 cap Transmission Status: Received by [facility] Primary Care Physician: NOT,DEFINED [NON-STAFF] - Please follow up with your Primary Care Physician in: 1-2 weeks Please Follow Up With: Karen Santa DO When: Monday Disposition: Against Medical Advice Minutes spent on discharge:: 35 Patient Condition:: Stable Medical Necessity - Tobacco Use Smoking Status: Heavy Smoker (>10/day) Tobacco Use: Cigarettes Meaningful Use Info Meaningful Use Diagnoses (Choose all that apply): None applicable <Kimberli Hall - Last Filed: 12/21/19 16:12> Hospital Course and Treatment Procedures: Bronchoscopy Summary of Care Provided: Agree with above based on my own independent history and physical - Physical Exam Vitals/I&O's: Vital Signs Temp Pulse Resp BP Pulse Ox 98.2 F 71 16 110/77 100 12/21/19 08:31 12/21/19 08:31 12/21/19 08:31 12/21/19 08:31 12/21/19 08:31 Oxygen Delivery Method Room Air Weight: 60.781 kg Body Mass Index (BMI) 22.3 Intake and Output for Last 24 Hours 12/19/19 12/20/19 12/21/19 23:59 23:59 23:59 Intake Total 1210 / 1510 1200 / 1400 400 / 400 Balance 1210 / 1510 1200 / 1400 400 / 400 General: Alert, Oriented x3, Cooperative, No apparent distress, Well developed, Well nourished Lungs: Clear to auscultation, Normal air movement, No rhonchi, No wheeze, No rales Cardiovascular: Regular rate, Regular Rhythm, Normal S1, Normal S2, No murmurs, No Ectopic Activity, No rub noted, No Gallop Abdomen: Bowel Sounds Present, Soft, Non Tender, Non-Distended, No Hepato- splenomegaly Extremities: No clubbing, No cyanosis, No edema, Capillary Refill Less than 3 Seconds Neurological: Cranial nerves II-XII grossly intact, Neuro grossly intact Psych/Mental Status: Normal Affect, Appropriate, Alert and oriented to time, place, person, mood and affect Microbiology Past 72 Hours 12/18/19 11:10 Urine, Clean Catch Urine Culture - Final Presumptive E. coli Inpatient E&M: [id number] Disch Hosp
== END 2019-12-21 10:38 | disposition home or self-care (01) ==
LOC: ED 13:08 → MS3 12-19 07:01
PROVIDERS: Emergency Provider Emergency Medicine; Visit Provider Internal Medicine
DX: F11.23 Opioid dependence with withdrawal (principal); B96.20 Unspecified Escherichia coli [E. coli] as the cause of diseases classified elsewhere; F15.10 Other stimulant abuse, uncomplicated; N39.0 Urinary tract infection, site not specified; Z86.19 Personal history of other infectious and parasitic diseases; F41.9 Anxiety disorder, unspecified; Z79.899 Other long term (current) drug therapy; F17.210 Nicotine dependence, cigarettes, uncomplicated
CPT/HCPCS: 80053; 80307; 80320; 81001; 81025; 85025; 86703; 87086; 87088; 87186; 97802; 99284; H0012; A4216; G0480; J2405

== ENCOUNTER 2020-02-12 17:25 | Emergency (ER) | payer MEDICAID, SELFPAY ==
[2019-12-18 14:44] VITALS: BMI 22.3
[2020-02-12 17:27] VITALS: BP 131/84; PULSE 119; RESP 15; TEMP 36.7; O2SAT 99; BMI 22.9
--- NOTE | 2020-02-12 18:11 | ED.DCSUM_ITS ---
History of Present Illness Chief Complaint: Abd Pain Informant: Patient Narrative: 29-year-old female presenting with epigastric pain which is been on and off for the last couple of weeks. She states she does not have a history of acid reflux. Patient also states she has a history of gallbladder problems, but cannot describe to me what they were. She states this happened when she was but she never followed up because it resolved. She states that last week she ate pizza and this is when her stomach started to hurt. She waited until overnight and her stomach felt better. Today she ate tacos and her stomach is now hurting again. She vomited one time. S she denies any diarrhea, constipation. States she is currently recovering from methamphetamine and fentanyl use and she is currently at a facility to help her. She has not done any drugs or alcohol that she admits to. Denies urinary or vaginal complaints. - Past Medical History (1) IV drug abuse Status: Chronic Past Medical History - Allergies and Home Meds Allergies/Adverse Reactions: Allergies No Known Allergies Allergy (Verified 02/12/20 17:27) Primary Care Physician: Lisa James,Out of [Primary Care Provider] - Past Medical History: - - Methamphetamine use, fentanyl use Surgical History: - - Oophorectomy Smoking Status: Current every day smoker Alcohol: None Drugs: None - Family History Maternal Family History: Reports: Hypertension Paternal Family History: Reports: Unknown Review of Systems General: Denies: Chills, Fever, Sweats Eyes: Denies: Visual changes - bilaterally, Diplopia ENT: Denies: Rhinorrhea, Sore throat Cardiovascular: Denies: Chest pain, Palpitations Respiratory: Denies: Dyspnea, Cough, Dyspnea on exertion Gastrointestinal: Reports: Abdominal pain, Nausea, Vomiting Genitourinary: Denies: Dysuria, Hematuria Musculoskeletal: Denies: Myalgias, Arthralgias Skin: Denies: Rash, Abscess Neurological: Denies: Headache, Weakness Physical Exam Vital Signs/Narrative: Vital Signs Temp Pulse Resp BP Pulse Ox 02/12/20 17:27 98.1 F 119 H 15 131/84 H 99 Inital Vital Signs reviewed: Yes General: Well nourished, No Acute Distress Head: Normocephalic, Atraumatic Eyes: Perrl, EOMI, Pale conjunctiva. Negative for: Scleral icterus ENT: Moist mucous membranes Cardiovascular: Regular rate, Regular rhythm Respiratory: No distress, CTA bilaterally Abdomen: Soft, Nondistended, - - B gastric tenderness to palpation. Negative Sharma sign Back: Nontender, Normal Inspection Extremities: Nontender, No edema Skin: Normal color, No rash, Cyanosis Neurological: Alert, Oriented x3 Psychological: Tearful, Agitated Diagnostic/Tx/Re-eval Clinical Impression(s) from Imaging Studies Abdomen Ultrasound 02/12/20 20:06 IMPRESSION: Contracted, but otherwise unremarkable gallbladder. Mild right hydronephrosis with no cause identified on this study. Electronically Signed: Maik Chisholm, at 20:59 EDT Tel , Service support , Laboratory Data 02/12/20 02/12/20 02/12/20 18:20 18:25 18:25 WBC 13.1 H RBC 4.96 Hgb 14.7 Hct 44.1 MCV 88.9 MCH 29.6 MCHC 33.3 RDW Std Deviation 42.9 RDW Coeff of Tod 13.3 Plt Count 362 MPV 8.3 Immature Gran % (Auto) 0.500 Neut % (Auto) 73.6 H Lymph % (Auto) 18.7 L [place] % (Auto) 5.1 Eos % (Auto) 1.7 Baso % (Auto) 0.4 Absolute Neuts (auto) 9.7 H Absolute Lymphs (auto) 2.46 Nucleated RBC % 0 Sodium 141 Potassium 4.5 Chloride 112 H Carbon Dioxide 26.0 Anion Gap 3 L BUN 14 Creatinine 0.90 Estim Creat Clear Calc 81.50 Est GFR (MDRD) Af Amer 94 Est GFR (MDRD) Non-Af 78 BUN/Creatinine Ratio 15.6 Glucose 93 Calcium 9.0 Total Bilirubin 0.20 AST 27 ALT 32 Alkaline Phosphatase 103 Total Protein 8.2 Albumin 3.7 Globulin 4.5 H Albumin/Globulin Ratio 0.8 L Lipase 292 Urine Color Yellow Urine Clarity Clear Urine pH 7.0 Ur Specific [place] 1.005 Urine Protein Negative Urine Glucose (UA) Normal Urine Ketones Negative Urine Occult Blood Negative Urine Nitrite Negative Urine Bilirubin Negative Urine Urobilinogen Normal Ur Leukocyte Esterase Negative - Medical Decision Making 29-year-old female presenting with epigastric pain after eating pizza and tacos. It did sound like this was more of a gastric issue and she is only tender in the epigastrium however she was concerned that something more severe was going on. I did check a CBC, CMP, lipase, and although her CBC is a slight leukocytosis at 13 rest of her lab work was within normal limits. Given that she is recovering from opioid abuse I did not want to give her opioids so she did get IV Pepcid which did not seem to help her pain. She was then given a GI cocktail which did help her get more comfortable. She did have concern still f or her gallbladder and after much discussion I did order an ultrasound of the right upper quadrant which was negative. At this point patient is comfortable being sent home. I will prescribe her Pepcid and Carafate. She is to follow-up with her PCP. She is counseled on foods that would exacerbate her symptoms. She is counseled on a bland diet. Patient is stable for discharge at this time Impression: 1. Gastritis versus gastric ulcer ED Disposition - Plan for ED Patient: Disposition: Home or Assisted Living Instructions: ED PEPTIC ULCER vs GASTRITIS Prescriptions: Sucralfate [Carafate] 1 gm PO 4X/DAY #30 udc Prescription Printed Famotidine [Pepcid] 20 mg PO BID #28 tab Prescription Printed Referrals: [facility] Doctor,Out of [Primary Care Provider] -
[2020-02-12] MEDS: Ondansetron 4 MG/2 ML Vial IV (18:18)
[2020-02-12] MEDS: Famotidine 200 MG/20 ML MDV 20 MG in 0.9% Normal Saline (Pres. free 8 ML 300 MG IV (18:32)
[2020-02-12 18:42] LABS: Color, Urine Yellow (Yellow); Glucose, Dipstick Normal (Normal); Ketone-Dipstick Negative (Negative); Leukocyte Esterase-Dipstick Negative /ul (Negative); Nitrite-Dipstick Negative (Negative); Occult Blood-Urine Negative /ul (Negative); Protein-Dipstick Negative (Negative); Specific Gravity, Urine 1.005 (1.002-1.030); Urine Bilirubin Dipstick Negative (Negative); Urine Clarity Clear (Clear); Urine Urobilinogen Normal (Normal)
[2020-02-12 18:42] LABS: Absolute Lymphocyte Count 2.46 X10^3/uL (0.83-4.51); Absolute Neutrophil Count 9.7 X10^3/uL (2.0-7.7); Basophil# 0.05 X10^3/uL; Basophil% 0.4 % (0-1); Eosinophil# 0.22 X10^3/uL; Eosinophils% 1.7 % (0-5); Hematocrit 44.1 % (37-47); Hemoglobin 14.7 g/dL (12.0-15.0); Lymphocyte # 2.46 X10^3/ul (4.0); Lymphocyte % 18.7 % (19-41); Mean Corp Hgb Conc 33.3 g/dL (32-36); Mean Corpuscular Hgb 29.6 pg (27.0-32.0); Mean Corpuscular Volume 88.9 fL (81-99); Mean Platelet Vol. 8.3 fl (6.2-12.0); Monocyte# 0.67 X10^3/uL; Monocyte% 5.1 % (0-10); NRBC Flagged by Analyzer 0 % (0-5); Neutrophil # 9.67 X10^3/uL (2.7-7.7); Neutrophil % 73.6 % (47-70); Platelet Count 362 K/mm3 (150-450); RBC Distribution Width CV 13.3 % (11.6-14.6); RBC Distribution Width SD 42.9 fl (35.1-43.9); Red Blood Count 4.96 M/mm3 (4.2-5.4); White Blood Count 13.1 K/mm3 (4.4-11.0)
[2020-02-12 18:59] LABS: ALB/GLOB Ratio 0.8 RATIO (0.9-2.4); AST(SGOT) 27 U/L (15-37); Alanine Aminotransfer ALT/SGPT 32 U/L (13-56); Albumin, Serum 3.7 g/dL (3.2-5.0); Alkaline Phosphatase 103 U/L (45-117); Anion Gap 3 (5-15); BUN 14 mg/dL (7-18); BUN/Creat Ratio 15.6 RATIO (10-20); Chloride 112 mmol/L (98-107); EST Glomerular Filtration Rate 78 mL/min (>60); Est Glom Filt Rate - Afr Amer 94 mL/min (>60); Globulin 4.5 g/dL (2.2-4.2); Glucose 93 mg/dL (74-106); Lipase 292 U/L (73-393); Potassium 4.5 mmol/L (3.5-5.1); Protein, Total 8.2 g/dL (6.4-8.2); Sodium Level 141 mmol/L (136-145)
--- NOTE | 2020-02-12 20:06 | US_ITS ---
STUDY: ABDOMINAL ULTRASOUND - RIGHT UPPER QUADRANT REASON FOR VISIT: Female, 29 years old. Right upper quadrant pain. TECHNIQUE: Ultrasound evaluation of the right upper quadrant was performed with real-time and static childress-scale imaging. TECHNICAL QUALITY: Adequate. COMPARISON: None. FINDINGS: Liver: The liver measures 14.5 cm. There is normal echogenicity of the liver. The bile ducts are within normal limits. There is hepatic color flow. The direction of portal flow is hepatopetal. There is no demonstrated mass lesion. Gallbladder: The gallbladder is contracted. The gallbladder wall measures 3 mm. There is a negative sonographic Sharma''s sign. There is no pericholecystic fluid. There are no gallstones. Common Bile Duct (C.B.D.): The common bile duct measures 4 mm. Pancreas: Normal size of the head, body and tail of the pancreas. There is normal echogenicity of the pancreas. There is no demonstrated pancreatic mass or cyst. Right Kidney: Normal size of the right kidney. The right kidney measures 9.1 cm. Normal renal cortex. There is no demonstrated renal mass or cyst. There is mild hydronephrosis of the right kidney. US/Abdomen Limited IMPRESSION: Contracted, but otherwise unremarkable gallbladder. Mild right hydronephrosis with no cause identified on this study. Electronically Signed: Maik Chisholm, at 20:59 EDT Tel , Service support ,
[2020-02-12] MEDS: Mag Hydrox/Al Hydrox/Simeth 30 ML UDC PO (20:11)
[2020-02-12 20:13] VITALS: BP 131/94; PULSE 90; RESP 16; O2SAT 97
[2020-02-12 22:23] VITALS: RESP 16
== END 2020-02-12 22:23 | disposition home or self-care (01) ==
PROVIDERS: Emergency Provider Student in an Organized Health Care Education/Training Program
DX: R10.13 Epigastric pain (principal); R11.2 Nausea with vomiting, unspecified; F17.200 Nicotine dependence, unspecified, uncomplicated; F11.10 Opioid abuse, uncomplicated
CPT/HCPCS: 76705; 80053; 81002; 83690; 85025; 96365; 96375; 99284; J2405; J3490

== ENCOUNTER 2020-04-14 13:38 | Emergency (ER) | payer MEDICAID, SELFPAY ==
[2020-04-14 13:39] VITALS: BP 118/74; PULSE 64; RESP 16; TEMP 36.3; O2SAT 100; BMI 22.5
[2020-04-14 13:42] VITALS: BP 118/74; PULSE 64; RESP 16; TEMP 36.3; O2SAT 100
--- NOTE | 2020-04-14 13:56 | ED.VIS.GEN ---
History of Present Illness Chief Complaint: Shortness of Breath Detail of Chief Complaint: Cough and shortness of breath, right flank pain, vomiting Informant: Patient Onset: Days Context: Gradual Onset Current Severity: Moderate Maximum Severity: Moderate Narrative: Patient reports onset of upper respiratory symptoms approximately 5 days ago. Over the past 2 days she has had significant right flank pain that she states feels similar to her prior kidney infections. She does report a pressure sensation in her bladder when she urinates. She does report nausea and vomiting over the past 24 hours. No significant diarrhea. She has felt warm at home but did not measure a fever when she checked. Past Medical History - Allergies and Home Meds Allergies/Adverse Reactions: Allergies No Known Allergies Allergy (Verified 02/12/20 17:27) Primary Care Physician: Lisa Doctor,Out of [NON-STAFF] - 1 Week Past Medical History: - - IV drug use Surgical History: - - Oophorectomy Smoking Status: Current every day smoker - Family History Maternal Family History: Reports: Hypertension Paternal Family History: Reports: Unknown Review of Systems General: Denies: Chills, Fever Eyes: Denies: Visual changes - bilaterally ENT: Denies: Bilateral ear pain, Sore throat Cardiovascular: Denies: Chest pain Respiratory: Reports: Dyspnea, Cough Gastrointestinal: Reports: Abdominal pain - Right flank pain, Nausea, Vomiting Genitourinary: Reports: Dysuria Musculoskeletal: Denies: Swelling, Extremity Pain Skin: Denies: Rash Neurological: Denies: Headache Hematologic: Denies: Easy bruising, Easy bleeding Allergy: Denies: Uticaria Physical Exam Vital Signs/Narrative: Vital Signs Temp Pulse Resp BP Pulse Ox 04/14/20 13:42 97.3 F L 64 16 118/74 100 04/14/20 13:39 97.3 F L 64 16 118/74 100 Inital Vital Signs reviewed: Yes General: Well nourished, Well developed Head: Normocephalic ENT: Moist mucous membranes Neck: Supple Cardiovascular: Regular rate, Regular rhythm Respiratory: No distress, CTA bilaterally Abdomen: Soft, Nontender, Hypoactive bowel sounds Back: CVA tenderness Extremities: Nontender Skin: Normal color Neurological: Alert, Oriented x3 Psychological: Normal affect Diagnostic/Tx/Re-eval Impressions Chest X-Ray 04/14/20 14:35 IMPRESSION: Normal x-ray examination of the chest. Electronically Signed: Nitesh Macedo, at 14:45 EST , Service support , Abdomen/Pelvis CT 04/14/20 15:22 IMPRESSION: Findings suggestive of early infiltrate in the medial aspect of the right middle lobe. 2.2 cm x 1.7 cm fat-containing nodular density in the right ovary suggestive of an ovarian dermoid. Electronically Signed: Nitesh Macedo, at 15:48 EST , Service support , 04/14/20 14:35 Chest 1 View (Portable) [RAD] Stat 04/14/20 15:22 Abdomen/Pelvis without Cont [CT] Stat Laboratory Results 04/14/20 04/14/20 04/14/20 14:01 14:01 14:01 WBC 10.8 RBC 5.07 Hgb 14.8 Hct 46.0 MCV 90.7 MCH 29.2 MCHC 32.2 RDW Std Deviation 43.5 RDW Coeff of Tod 13.1 Plt Count 308 MPV 9.2 Immature Gran % (Auto) 0.300 Neut % (Auto) 69.8 Lymph % (Auto) 22.7 [place] % (Auto) 4.3 Eos % (Auto) 2.6 Baso % (Auto) 0.3 Absolute Neuts (auto) 7.5 Absolute Lymphs (auto) 2.45 Nucleated RBC % 0 Sodium 142 Potassium 3.9 Chloride 111 H Carbon Dioxide 26.0 Anion Gap 5 BUN 7 Creatinine 0.79 Estim Creat Clear Calc 92.85 Est GFR (MDRD) Af Amer 109 Est GFR (MDRD) Non-Af 90 BUN/Creatinine Ratio 8.9 L Glucose 106 Calcium 9.1 Serum , Qual NEGATIVE Urine Color Urine Clarity Urine pH Ur Specific [place] Urine Protein Urine Glucose (UA) Urine Ketones Urine Occult Blood Urine Nitrite Urine Bilirubin Urine Urobilinogen Ur Leukocyte Esterase Urine RBC Urine WBC Ur Squamous Epith Cells Urine Bacteria Urine Mucus 04/14/20 14:40 WBC RBC Hgb Hct MCV MCH MCHC RDW Std Deviation RDW Coeff of Tod Plt Count MPV Immature Gran % (Auto) Neut % (Auto) Lymph % (Auto) [place] % (Auto) Eos % (Auto) Baso % (Auto) Absolute Neuts (auto) Absolute Lymphs (auto) Nucleated RBC % Sodium Potassium Chloride Carbon Dioxide Anion Gap BUN Creatinine Estim Creat Clear Calc Est GFR (MDRD) Af Amer Est GFR (MDRD) Non-Af BUN/Creatinine Ratio Glucose Calcium Serum , Qual Urine Color Yellow Urine Clarity Cloudy Urine pH 6.0 Ur Specific [place] 1.020 Urine Protein 15 H Urine Glucose (UA) Normal Urine Ketones 5 H Urine Occult Blood Negative Urine Nitrite Negative Urine Bilirubin Negative Urine Urobilinogen 4 H Ur Leukocyte Esterase 25 H Urine RBC 0 SEEN Urine WBC 0-5 SEEN Ur Squamous Epith Cells 5-10 SEEN Urine Bacteria 0 SEEN Urine Mucus 2+ - Medical Decision Making Patient was initially given Toradol and Zofran followed by Tylenol to help with pain. She is on ZUBSOLV therefore no narcotics were given. Test results are discussed with her. There is evidence of a medial right middle lobe pneumonia. This may be causing her right flank pain. She be given prescription for cough syrup as well as Toradol and doxycycline. Send out Covid test was obtained. She was advised these test results to be available in approximately 3 days. ED Disposition - Plan for ED Patient: Disposition: Home or Assisted Living Diagnosis: Pneumonia, Flank pain Instructions: Pneumonia, ED Flank Pain Uncertain Cause Prescriptions: Doxycycline 100 mg PO BID #20 cap Transmission Status: Received by [facility] Guaifenesin [Robitussin] 10 ml PO Q6H PRN PRN #120 udc PRN Reason: Cough Transmission Status: Received by [facility] Ketorolac [Toradol] 10 mg PO Q6H PRN #14 tab PRN Reason: Pain Score 4-10 Transmission Status: Received by [facility] Ondansetron [Zofran Odt] 4 mg PO Q8H PRN PRN #10 tab PRN Reason: Nausea Transmission Status: Pending to [facility] Referrals: [facility] Doctor,Out of [NON-STAFF] - 1 Week
[2020-04-14] MEDS: 0.9% Normal Saline 1,000 ML 1000 ML IV (14:00)
[2020-04-14] MEDS: Ketorolac 30 MG/ML Syringe IV (14:00)
[2020-04-14] MEDS: Ondansetron 4 MG/2 ML Vial IV (14:00)
[2020-04-14 14:27] LABS: Internal QC Validated? YES +Cl - CLEAR BKGD; Pregnancy, Serum, hCG Quali. NEGATIVE Negative
[2020-04-14 14:33] LABS: Anion Gap 5 (5-15); BUN 7 mg/dL (7-18); BUN/Creat Ratio 8.9 RATIO (10-20); Calcium,Total 9.1 mg/dL (8.5-10.1); Chloride 111 mmol/L (98-107); Creatinine, Serum 0.79 mg/dL (0.55-1.02); EST Glomerular Filtration Rate 90 mL/min (>60); Est Glom Filt Rate - Afr Amer 109 mL/min (>60); Estimated Creatinine Clearance 92.85 ml/min; Glucose 106 mg/dL (74-106); Potassium 3.9 mmol/L (3.5-5.1); Sodium Level 142 mmol/L (136-145)
[2020-04-14 14:35] LABS: Absolute Lymphocyte Count 2.45 X10^3/uL (0.83-4.51); Absolute Neutrophil Count 7.5 X10^3/uL (2.0-7.7); Basophil# 0.03 X10^3/uL; Basophil% 0.3 % (0-1); Eosinophil# 0.28 X10^3/uL; Eosinophils% 2.6 % (0-5); Hemoglobin 14.8 g/dL (12.0-15.0); Lymphocyte # 2.45 X10^3/ul (4.0); Lymphocyte % 22.7 % (19-41); Mean Corp Hgb Conc 32.2 g/dL (32-36); Mean Corpuscular Hgb 29.2 pg (27.0-32.0); Mean Corpuscular Volume 90.7 fL (81-99); Mean Platelet Vol. 9.2 fl (6.2-12.0); Monocyte# 0.46 X10^3/uL; Monocyte% 4.3 % (0-10); NRBC Flagged by Analyzer 0 % (0-5); Neutrophil # 7.52 X10^3/uL (2.7-7.7); Neutrophil % 69.8 % (47-70); Platelet Count 308 K/mm3 (150-450); RBC Distribution Width CV 13.1 % (11.6-14.6); RBC Distribution Width SD 43.5 fl (35.1-43.9); Red Blood Count 5.07 M/mm3 (4.2-5.4); White Blood Count 10.8 K/mm3 (4.4-11.0)
--- NOTE | 2020-04-14 14:35 | RAD_ITS ---
STUDY: X-RAY CHEST REASON FOR EXAM: Female, 29 years old. cough,SOB, weakness,right flank pain, nausea, vomiting TECHNIQUE: Single AP portable view of the chest. COMPARISON: None. FINDINGS: The lungs are clear and expanded. There is no demonstrated pleural abnormality. Normal size heart. Normal mediastinum and rui. Normal visualized pulmonary arteries. Normal visualized aortic arch and descending thoracic aorta. Normal visualized thoracic spine. Normal visualized ribs, clavicles, and shoulders. There is no demonstrated abnormality of the visualized soft tissue structures of the upper abdomen. RAD/Chest 1 View (Portable) IMPRESSION: Normal x-ray examination of the chest. Electronically Signed: Nitesh Macedo, at 14:45 EST , Service support ,
[2020-04-14 14:53] LABS: Bacteria 0 SEEN /hpf (None Seen); Red Blood Cells-Urine 0 SEEN /hpf (0-5)
[2020-04-14 14:56] LABS: Color, Urine Yellow (Yellow); Glucose, Dipstick Normal (Normal); Ketone-Dipstick 5 mg/dl (Negative); Leukocyte Esterase-Dipstick 25 /ul (Negative); Nitrite-Dipstick Negative (Negative); Occult Blood-Urine Negative /ul (Negative); Protein-Dipstick 15 mg/dl (Negative); Urine Bilirubin Dipstick Negative (Negative); Urine Clarity Cloudy (Clear); Urine Urobilinogen 4 mg/dl (Normal)
[2020-04-14 15:02] LABS: Mucous, Urine 2+ /hpf (<or=2+); Squamous Epithelial Cells - UA 5-10 SEEN /hpf (5-10); White Blood Cells 0-5 SEEN /hpf (0-5)
--- NOTE | 2020-04-14 15:22 | CT_ITS ---
STUDY: CT ABDOMEN AND PELVIS WITHOUT CONTRAST REASON FOR EXAM: Female, 29 years old. Cough sob and weakness with flank pain and nausea/ vomiting RADIATION DOSAGE (If Supplied By Facility): CTDIvol = ( 6.48 ) mGy, DLP = ( 323.56 ) mGycm TECHNIQUE: Transaxial images were obtained from the dome of the diaphragm to the symphysis pubis without oral contrast, and without intravenous contrast. Sagittal and coronal images were reconstructed. Individualized dose optimization techniques were used for this CT. COMPARISON: None. FINDINGS: Focal patchy groundglass appearance in the medial aspect of the right middle lobe. Early infiltrate should be ruled out. The visualized portions of the heart are within normal limits. Normal liver. Normal gallbladder and extrahepatic biliary system. Normal spleen. Normal pancreas. Normal bilateral adrenal glands. Normal right kidney. Normal left kidney. There is a small hiatal hernia. Normal small intestine. Normal colon. The appendix is visualized and appears normal. Normal abdominal aorta. Normal inferior vena cava. Normal retroperitoneum. Normal urinary bladder. There is a 2.2 cm x 1.7 cm fat-containing density in the right ovary suggestive of a dermoid. Normal abdominal wall. Normal osseous structures. CT/Abdomen/Pelvis without Cont IMPRESSION: Findings suggestive of early infiltrate in the medial aspect of the right middle lobe. 2.2 cm x 1.7 cm fat-containing nodular density in the right ovary suggestive of an ovarian dermoid. Electronically Signed: Nitesh Macedo, at 15:48 EST , Service support ,
[2020-04-14 15:39] VITALS: BP 105/65; PULSE 67; RESP 16; TEMP 36.2; O2SAT 98
[2020-04-14] MEDS: Acetaminophen 500 MG Tablet 1000 MG PO (15:56)
[2020-04-14] MEDS: Doxycycline 100 MG CAPSULE PO (16:29)
[2020-04-14 16:31] VITALS: BP 106/68; PULSE 67; RESP 14; O2SAT 97
--- NOTE | 2020-04-14 17:39 | CM.ED ---
Social Work Consult: No PCP Informant: Self Referral Telephone call to patient room due to COVID-19 precautions. This long term care social worker introduced self and long term care social worker role. Patient agreeable to speak with this long term care social worker. This long term care social worker broached topic of PCP. Patient confirms to not have a PCP. Patient voices plan to get set up with a PCP. Patient open to this long term care social worker providing patient with list of in-network PCP's for patient. Patient denies any concerns in the community or transportation limitations. This long term care social worker looking up list of in-network providers for patient. When this long term care social worker went to place list with patient discharge information, patient had already left the ED. Harmeet GRULLON, A[place]
== END 2020-04-14 17:35 | disposition home or self-care (01) ==
PROVIDERS: Emergency Provider Emergency Medicine
DX: J18.9 Pneumonia, unspecified organism (principal); R10.9 Unspecified abdominal pain; F17.200 Nicotine dependence, unspecified, uncomplicated
CPT/HCPCS: 71045; 74176; 80048; 81001; 84703; 85025; 87635; 96361; 96374; 96375; 99284; J7030; J2405; U0003